=== PATIENT | female | born 1955 | race Caucasian/White ===

== ENCOUNTER 2020-09-22 21:25 | Emergency (ER) | payer MEDICARE, OTHER, SELFPAY ==
[2020-09-22 21:30] VITALS: BP 148/78; PULSE 81; RESP 16; TEMP 36.7; O2SAT 99
--- NOTE | 2020-09-22 21:36 | ED_ITS ---
HPI - Wound/Laceration General Chief Complaint: Wound/Laceration Stated Complaint: left eyebrow cut Time Seen by Provider: 09/22/20 21:33 Source: patient Mode of arrival: Ambulatory Limitations: no limitations History of Present Illness HPI narrative: 65-year-old female here for evaluation of a cut that she sustained above her left eye. Patient states that she slipped and fell in her kitchen hitting her face on a piece of furniture. There was no loss of consciousness. No anticoagulation. Reports no other injury except for the cut above her eye. Related Data Home Medications Medication Instructions Recorded Confirmed No Known Home Medications 09/14/20 09/14/20 Allergies Allergy/AdvReac Type Severity Reaction Status Date / Time No Known Drug Allergies Allergy Verified 09/14/20 10:00 Review of Systems Constitutional Constitutional: Denies fever(s) and Denies headache(s) Eyes Eyes: Denies blurry vision, Denies change in vision and Denies diplopia ENT Ears, Nose, Mouth, and Throat: Denies vertigo, Denies headache(s), Denies disequilibrium, Denies sinus pain and Denies sinus pressure Cardiovascular Cardiovascular: Denies chest pain and Denies dyspnea Respiratory Respiratory: Denies dyspnea Musculoskeletal Musculoskeletal: Denies arthralgias and Denies myalgias Integumentary/Breasts Skin/Breast: Denies rash Comments: Cut above left eye Neurologic Neurologic: Denies confusion, Denies vertigo, Denies headache(s) and Denies disequilibrium Psychiatric Psychiatric: Denies confusion, Denies depression and Denies irritability Hematologic/Lymphatic Hematologic/Lymphatic: Denies easy bleeding and Denies easy bruising Allergic/Immunologic Allergic/Immunologic: Denies urticaria Patient History Medical History Chicken pox (Resolved ~1962) Fractures (Resolved ~1972) Measles (Resolved ~1964) Obesity (BMI 30.0-34.9) (Acute) Family History (Updated 09/15/20 @ 20:24 by Arleen Fuentes) Father History of heart disease Mother History of heart disease Social History Smoking Status: Never smoker Smoking Status: Never smoker Exam Initial Vital Signs Initial Vital Signs: Vital Signs Temperature 98.0 F 09/22/20 21:30 Pulse Rate 81 09/22/20 21:30 Respiratory Rate 16 09/22/20 21:30 Blood Pressure 148/78 H 09/22/20 21:30 Pulse Oximetry 99 09/22/20 21:30 Const General: cooperative, comfortable, well developed and well groomed Limitations: mental status not altered HENMT Head: laceration Nose: external nose normal Face and sinus: normal facial exam Mouth: oral mucosae normal Teeth and gingiva: dentition normal Eyes Pupils: PERRL EOM: EOM intact bilaterally Skin Other: 2 cm laceration lateral aspect above left eye Neuro General: patient alert and patient awake Cognition: normal cognition Speech: speech normal Extrem General: normal to inspection and capillary refill normal Psych Appearance: grossly normal and well kempt Procedures Laceration Repair Laceration 1: Site: face Side (If applicable): left Size (cm): 2 Description: linear Depth: simple, single layer Local Anesthetic: lidocaine 1% and with bicarb Amount of anesthesia used (mL): 3 Pre-repair: wound explored Skin layer closed with: other (Chromic) Size (cm): 4-0 Number of sutures: 6 Technique: simple, interrupted Scores GCS Gertrude coma scale eye opening: Spontaneous Gertrude coma scale verbal response: Orientated Gertrude coma scale motor response: Obey commands [place] coma scale total score: 15 Nexus Score for C-Spine Focal Neurologic deficit present: No Midline spinal tenderness present: No Altered level of conciousness present: No Intoxication present: No Distracting Injury Present: No Nexus Criteria for C-spine: 0 Course Orders Ordered: Discontinued Medications Bacitracin (Bacitracin) 1 applic TOP NOW ONE Stop: 09/22/20 21:37 Last Admin: 09/22/20 21:56 Dose: 1 applic Documented by: BENSON Lidocaine/Sodium Bicarbonate (Buffered Lidocaine 10 Ml Syr) 10 ml INJ NOW ONE Stop: 09/22/20 21:37 Last Admin: 09/22/20 21:56 Dose: 10 ml Documented by: BENSON Vital Signs Vital signs: Vital Signs - 8 hr 09/22/20 21:30 Temperature 98.0 F Pulse Rate 81 Respiratory Rate 16 Blood Pressure 148/78 H Pulse Oximetry 99 MDM - Wound/Laceration MDM Narrative Medical decision making narrative: Does appear to be a mechanical fall. Not on anticoagulation. No injuries except for the laceration above the left eye. This was closed as described above. Patient was given care instructions and return precautions. She expressed understanding and agreement. Discharge Plan Departure Patient Disposition: Home Clinical Impression: Laceration Discharge Date/Time: 09/22/20 21:57 Instructions: DI for Laceration Repair Activity Restrictions/Additional Instructions: You can shower after 24 hours. You can also put antibiotic ointment over the cut. The stitches are absorbable and should come out on their own. You can also use ice. Expect a black eye over the next couple days which should resolve on its own. Return to the emergency department for any new or worsening symptoms Prescriptions: No Action No Known Home Medications RF: 0 Referrals: Rian Paniagua ARNP [Primary Care Provider] -
[2020-09-22] MEDS: LIDO 1%/SOD BICARB 8.4% (10ML) 10 ML SYRINGE INJ (21:56)
[2020-09-22] MEDS: BACITRACIN OINT 0.9 GM PCKT 1 APPLIC TOP (21:56)
== END 2020-09-22 21:57 | disposition home or self-care (01) ==
PROVIDERS: Emergency Provider Emergency Medicine; PCP Registered Nurse Diabetes Educator
DX: S01.112A Laceration without foreign body of left eyelid and periocular area, initial encounter (principal); W19.XXXA Unspecified fall, initial encounter
CPT/HCPCS: 12011; 99283

== ENCOUNTER → 2024-05-09 08:23 | Outpatient (CLI) | payer MEDICARE, OTHER, SELFPAY ==
[2024-05-09 10:36] LABS: Alanine Aminotransferase 209 IU/L (<35); Albumin 4.5 g/dL (3.5-5.0); Albumin Globulin Ratio 1.4 (1.0-2.8); Alkaline Phosphatase 508 U/L (38-126); Aspartate Aminotransferase 101 IU/L (14-36); BUN Creatinine Ratio 14.5 (6-22); Bilirubin Total 1.1 mg/dL (0.2-1.3); Blood Urea Nitrogen 11 mg/dL (7-17); Calcium 10.1 mg/dL (8.4-10.2); Carbon Dioxide 25 mmol/L (22-32); Chloride 102 mmol/L (98-107); Cholesterol 297 mg/dL (140-199); Estimated Glomerular Filt Rate > 60 mL/min (>60); Globulin 3.3 g/dL (1.7-4.1); Glucose 85 mg/dL (80-110); HDL Cholesterol 84 mg/dL (40-60); HEMOLYSIS < 15 (0-50); LDL Cholesterol Calculated 191 mg/dL (<100); Potassium 5.1 mmol/L (3.4-5.1); Sodium 134 mmol/L (137-145); Total Protein 7.8 g/dL (6.3-8.2); Triglycerides 109 mg/dL (35-150)
== END ==
PROVIDERS: PCP Family Medicine; Referring Provider Family Medicine; Visit Provider Family Medicine
DX: E78.00 Pure hypercholesterolemia, unspecified (principal); R74.8 Abnormal levels of other serum enzymes
CPT/HCPCS: 36415; 80053; 80061

== ENCOUNTER → 2024-06-02 09:23 | Outpatient (CLI) | payer MEDICARE, OTHER, SELFPAY ==
[2024-06-02 10:56] LABS: Alanine Aminotransferase 75 IU/L (<35); Albumin 4.4 g/dL (3.5-5.0); Albumin Globulin Ratio 1.2 (1.0-2.8); Alkaline Phosphatase 306 U/L (38-126); Aspartate Aminotransferase 53 IU/L (14-36); Bilirubin Total 0.9 mg/dL (0.2-1.3); Bilirubin Unconjugated 0.4 mg/dL (0.0-1.1); Globulin 3.6 g/dL (1.7-4.1); HEMOLYSIS < 15 (0-50)
== END ==
PROVIDERS: PCP Family Medicine; Referring Provider Internal Medicine; Visit Provider Internal Medicine
DX: K80.50 Calculus of bile duct without cholangitis or cholecystitis without obstruction (principal)
CPT/HCPCS: 36415; 80076

== ENCOUNTER → 2024-08-05 09:42 | Outpatient (CLI) | payer MEDICARE, OTHER, SELFPAY ==
[2024-08-05 10:56] LABS: Alanine Aminotransferase 24 IU/L (<35); Albumin 4.4 g/dL (3.5-5.0); Albumin Globulin Ratio 1.5 (1.0-2.8); Alkaline Phosphatase 107 U/L (38-126); Aspartate Aminotransferase 31 IU/L (14-36); Bilirubin Total 0.8 mg/dL (0.2-1.3); Bilirubin Unconjugated 0.7 mg/dL (0.0-1.1); Cholesterol 148 mg/dL (140-199); Globulin 2.9 g/dL (1.7-4.1); HDL Cholesterol 79 mg/dL (40-60); HEMOLYSIS < 15 (0-50); Total Protein 7.3 g/dL (6.3-8.2)
[2024-08-05 11:57] LABS: LDL Cholesterol Calculated 51 mg/dL (<100); Triglycerides 92 mg/dL (35-150)
== END ==
PROVIDERS: Referring Provider Internal Medicine Gastroenterology; Visit Provider Internal Medicine Gastroenterology
DX: R74.8 Abnormal levels of other serum enzymes (principal)
CPT/HCPCS: 36415; 80061; 80076

== ENCOUNTER → 2025-04-29 09:25 | Outpatient (CLI) | payer MEDICARE, OTHER, SELFPAY ==
[2025-04-29 10:53] LABS: Alanine Aminotransferase 20 IU/L (<35); Albumin 4.7 g/dL (3.5-5.0); Alkaline Phosphatase 78 U/L (38-126); Aspartate Aminotransferase 30 IU/L (14-36); BUN Creatinine Ratio 17.5 (6-22); Bilirubin Total 1.2 mg/dL (0.2-1.3); Blood Urea Nitrogen 14 mg/dL (7-17); Calcium 9.5 mg/dL (8.4-10.2); Carbon Dioxide 25 mmol/L (22-32); Chloride 103 mmol/L (98-107); Cholesterol 138 mg/dL (140-199); Estimated Glomerular Filt Rate > 60 mL/min (>60); Globulin 2.3 g/dL (1.7-4.1); Glucose 85 mg/dL (70-99); HDL Cholesterol 70 mg/dL (40-60); HEMOLYSIS < 15 (0-50); LDL Cholesterol Calculated 49 mg/dL (<100); Potassium 4.5 mmol/L (3.4-5.1); Sodium 137 mmol/L (137-145); Triglycerides 93 mg/dL (35-150)
--- NOTE | 2025-04-29 12:12 | DI.RAD.S_ITS ---
PROCEDURE: XR DEXA AXIAL SKELETON INDICATIONS: ESTROGEN DEFICIENCY COMPARISON: None. FINDINGS: Lumbar Spine: Bone mineral density 1.217 g/cm2, T score 1.7. Left Femoral Neck: Bone mineral density 0.881 g/cm2, T score 0.3. Left Hip: Bone mineral density 1.009 g/cm2, T score 0.6. Fracture Risk Calculation (when applicable): 10-year fracture risk of a major osteoporotic fracture 9.7 percent and of a hip fracture 1.0 percent. (T score greater or equal to -1.0 to: NORMAL) (T score from -1.1 to -2.4: OSTEOPENIA) (T score less than or equal to -2.5: OSTEOPOROSIS) IMPRESSION: Normal bone mineral density by WHO classification. Follow-up guidelines as follows: Osteoporosis: Consider a repeat DEXA and Vertebral Fracture Assessment (VFA) exam in 2 years or sooner if medically necessary, to reassess this patient's status. Osteopenia: Consider a repeat DEXA in 2-3 years to reassess this patient's status, or if there is a new clinical indication. Normal: Consider a repeat DEXA in 5 years or sooner, or if there is a new clinical indication. All treatment decisions require clinical judgment and consideration of individual patient factors, including patient preferences, comorbidities, previous drug use, risk factors not captured in the FRAX model (e.g., frailty, falls, vitamin D deficiency, increased bone turnover, interval significant decline in bone density ) and possible under- or over-estimation of fracture risk by FRAX. In addition, the NOF Guide recommends that FDA-approved medical therapies be considered in postmenopausal women and men age >= 50 years with a: * Hip or vertebral (clinical or morphometric) fracture * T-score of <=-2.5 at the spine or hip * Ten-year fracture probability by FRAX of >= 3% for hip fracture or >=20% for major osteoporotic fracture. Dictated by: Bebo Kimble M.D. on 04/29/2025 at 14:45 Approved by: Bebo Kimble M.D. on 04/29/2025 at 14:49
== END ==
PROVIDERS: PCP Family Medicine; Referring Provider Family Medicine; Visit Provider Family Medicine
DX: E28.39 Other primary ovarian failure (principal); K80.50 Calculus of bile duct without cholangitis or cholecystitis without obstruction; E78.00 Pure hypercholesterolemia, unspecified; R74.8 Abnormal levels of other serum enzymes
CPT/HCPCS: 36415; 77080; 80053; 80061